=== PATIENT | male | born 1935 | race Caucasian/White ===

== ENCOUNTER → 2018-02-13 13:05 | Outpatient (CLI) | payer MEDICARE, BC, SELFPAY ==
--- NOTE | 2018-02-13 13:12 | CT_ITS ---
STUDY: CTA OF THE ABDOMINAL AORTA AND BILATERAL LOWER EXTREMITIES REASON FOR EXAM: Male, 82 years old. Atherosclerosis, history of prostate cancer with removal. Leg vein stripping RADIATION DOSAGE (If Supplied By Facility): CTDIvol = ( 9.61 ) mGy, DLP = ( 1392.21 ) mGycm TECHNIQUE: Axial CT angiography multi-detector data acquisition was obtained from the dome of the diaphragm to the foot following intravenous administration of 100 ml of Isovue 370 contrast. Axial images and MIP images were reconstructed from the axial data set. Post-processing of the angiographic images was performed, with multiplanar reformation and 3D reconstruction. Individualized dose optimization techniques were used for this CT. TECHNICAL QUALITY: Good COMPARISON: None. Descriptors of Narrowing: None (0%) Mild (< 50%) Moderate (50-70%) Severe (70-90%) Subtotal/Total Occlusion (90-100%) Non-Evaluable (technically non-diagnostic FINDINGS: There is diffuse atherosclerosis with wall thickening and atheromatous wall formation involving the aorta, pelvic arteries and bilateral lower extremity runoff. Abdominal aorta: No demonstrated narrowing, aneurysm, dissection or leak.. Superior mesenteric arteries: Large proximal plaque formation and significant proximal atheromatous wall thickening causing moderate to severe proximal narrowing. Image 43 series 2. Celiac and Inferior mesenteric artery: No demonstrated narrowing. Right renal artery(arteries): There is moderate proximal narrowing. Left renal artery(arteries): There is severe proximal narrowing. Right common iliac artery: There is mild diffuse narrowing. Right external iliac artery: There is mild diffuse narrowing. Right internal iliac artery: There is moderate proximal narrowing. Left common iliac artery: There is mild diffuse narrowing. Left external iliac artery: There is mild diffuse narrowing. Left internal iliac artery: There is moderate proximal narrowing. RIGHT LOWER EXTREMITY Right common femoral artery: There is mild diffuse narrowing. Right profundus femoris: There is mild diffuse narrowing with focal moderate proximal narrowing. Right superficial femoral: There is mild diffuse narrowing with moderate distal narrowing.. Right popliteal artery: There is moderate diffuse narrowing. Right tibioperoneal trunk: There is moderate diffuse narrowing. Right anterior tibial artery: No demonstrated narrowing. Right posterior tibial artery: There is mild diffuse narrowing, with visualization of the vessel to the distal calf. Right peroneal artery: There is mild diffuse narrowing, with visualization of the vessel to the distal calf. LEFT LOWER EXTREMITY Left common femoral artery: There is mild to moderate diffuse narrowing. Left profundus femoris: No demonstrated narrowing. Left superficial femoral: There is significant atherosclerotic plaque formation along the distal superficial femoral artery with moderate to severe narrowing, an area of high-grade stenosis image 28 series 2. Left popliteal artery: There is severe narrowing with areas of high-grade stenosis.. Left tibioperoneal trunk: No demonstrated narrowing but small caliber vessel.. Left anterior tibial artery: No demonstrated narrowing. Left posterior tibial artery: There is mild diffuse narrowing, with visualization of the vessel to the distal calf. Left peroneal artery: There is mild diffuse narrowing, with visualization of the vessel to the distal calf. CT ABDOMEN AND PELVIS WITH CONTRAST FINDINGS: The visualized lung bases are unremarkable. There is cardiac enlargement. There is coronary artery calcification. Prior sternotomy. Normal liver. Normal gallbladder and extrahepatic biliary system. Normal spleen. Trace perisplenic fluid of unclear etiology.. Normal pancreas. Normal bilateral adrenal glands. Bilateral renal cortical thinning, nonobstructing right renal calculus. Normal visualized stomach. Normal small intestine. There are multiple colonic diverticula consistent with diverticulosis. There is moderate amount of fecal material. There is no obstruction. The appendix is visualized and appears normal. Normal inferior vena cava. Normal retroperitoneum. Normal urinary bladder. Postsurgical changes in the pelvis consistent with history. Normal abdominal wall. There are diffuse degenerative changes of the visualized lumbar spine. Surgical changes left ankle and subcutaneous medial leg consistent with history. CT/CTA Abd w/Runoff W/WO Contrast IMPRESSION: 1. No abdominal aortic stenosis, aneurysm, leak or dissection. 2. Diffuse atherosclerotic disease with arteriosclerotic wall thickening atheromatous plaque formation. 3. 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 4. Moderate proximal and moderate to severe proximal stenosis of the right and left renal arteries respectively. 5. Moderate proximal stenosis bilateral internal iliac artery. 6. Proximal stenosis of the right deep and superficial femoral artery origin. 7. Moderate stenosis involving the right popliteal artery. 8. Significant atherosclerotic plaque formation involving the distal superficial femoral artery with high-grade stenosis. 9. High-grade stenosis in the left popliteal artery. 10. Mild diffuse atherosclerotic disease of the three-vessel patent lateral infrapopliteal runoff. 11. Other nonacute findings within the abdomen and pelvic examination as above. Electronically Signed: Manuela Hendrix MD at 7:37 EDT , Service support ,
== END ==
PROVIDERS: Family Provider Family Medicine; PCP Family Medicine; Visit Provider Surgery Vascular Surgery
DX: I70.213 Atherosclerosis of native arteries of extremities with intermittent claudication, bilateral legs (principal)
CPT/HCPCS: 75635; Q9967